=== PATIENT | male | born 2000 | race Hispanic/Latino ===

== ENCOUNTER 2025-04-02 00:07 | Emergency (ER) | payer SELFPAY ==
[2025-04-02 00:07] VITALS: BP 133/82; PULSE 68; RESP 18; TEMP 37.1; O2SAT 96
--- NOTE | 2025-04-02 00:20 | ECG_ITS ---
Test Date: 2025-04-02 00:23:07 Measurements Intervals [place] Rate: 58 P: 61 NH: 124 QRS: 71 QRSD: 114 T: 44 QT: 413 QTc: 407 Interpretive Statements SINUS BRADYCARDIA MODERATE INTRAVENTRICULAR CONDUCTION DELAY [110+ ms QRS DURATION] No previous ECG available for comparison Electronically Signed On 04-02-2025 16:04:30 CDT by Steven Escobar
[2025-04-02] MEDS: FAMOTIDINE 20 MG/2 ML VIAL IV PUSH (00:23)
[2025-04-02] MEDS: diphenhydrAMINE HCl INJ 50 MG/ML VIAL 25 MG IV PUSH ×2 (00:24→00:26)
[2025-04-02] MEDS: SODIUM CHLORIDE 0.9% IV 100 ML 999 ML (00:25)
[2025-04-02] MEDS: SODIUM CHLORIDE 0.9% IV 1,000 ML 999 ML IV CONT (00:26)
[2025-04-02 01:06] VITALS: BP 137/73; PULSE 61; RESP 14; O2SAT 100
[2025-04-02 01:07] VITALS: O2SAT 100
--- NOTE | 2025-04-02 03:16 | ED_ITS ---
HPI - General Adult General Chief complaint: Allergic Reaction Stated complaint: allergic reaction Time Seen by Provider: 04/02/25 00:21 History of Present Illness HPI narrative: Patient 24-year-old gentleman presents emergency department chief complaint of allergic reaction. The patient reports he has prior history of asthma reports that he ate a bowl that had shrimp in it of and had a reaction patient was given steroids by EMS reports that he started to feel better Related Data Allergies Allergy/AdvReac Type Severity Reaction Status Date / Time No Known Allergies Allergy Verified 04/02/25 00:26 Review of Systems Review of Systems: A 10 system review of systems was completed on the patient and is negative except for what is stated in the HPI. Nursing and ancillary documentation was reviewed. Exam Narrative: GENERAL: Well-appearing, well-nourished, and in no acute distress. HEAD: Normocephalic, atraumatic. EYES: PERRLA and EOMI. ENT: Nares clear, no rhinorrhea or epistaxis. Mucous membranes moist. NECK: Supple. CHEST: Clear to auscultation. No respiratory distress. HEART: Regular rate and rhythm. No murmur heard. Normal peripheral pulses. ABDOMEN: Soft, nontender, nondistended, normal active bowel sounds. EXTREMITIES: Normal range of motion. No edema. SKIN: Warm, dry, no rash. NEURO: No focal deficits. Alert and oriented x3. PSYCH: Normal mood and affect. Course Vital Signs Vital signs: Vital Signs Temperature 37.1 C 04/02/25 00:07 Pulse Rate 68 04/02/25 00:07 Respiratory Rate 18 04/02/25 00:07 Blood Pressure 133/82 04/02/25 00:07 Pulse Oximetry 96 04/02/25 00:07 Oxygen Delivery Room Air 04/02/25 00:07 Temperature 37.1 C 04/02/25 00:07 Pulse Rate 61 04/02/25 01:06 Respiratory Rate 14 04/02/25 01:06 Blood Pressure 137/73 04/02/25 01:06 Pulse Oximetry 100 04/02/25 01:07 Oxygen Delivery Room Air 04/02/25 01:07 Medical Decision Making [facility] Narrative Medical decision making narrative: Patient was treated with steroids pre-hospital received Benadryl and Pepcid in the ER and is feeling much better patient was observed for 2 hours will be discharged home Vital Signs Vital Signs: Vital Signs Temperature 37.1 C 04/02/25 00:07 Pulse Rate 68 04/02/25 00:07 Respiratory Rate 18 04/02/25 00:07 Blood Pressure 133/82 04/02/25 00:07 Pulse Oximetry 96 04/02/25 00:07 Oxygen Delivery Room Air 04/02/25 00:07 Temperature 37.1 C 04/02/25 00:07 Pulse Rate 61 04/02/25 01:06 Respiratory Rate 14 04/02/25 01:06 Blood Pressure 137/73 04/02/25 01:06 Pulse Oximetry 100 04/02/25 01:07 Oxygen Delivery Room Air 04/02/25 01:07 Discharge Plan Discharge Clinical Impression: Allergic reaction Patient Disposition: Home Condition: Stable Instructions: Antibiotic Form, General Allergic Reaction (ED) Patient Language: Occitan Prescriptions: New prednisone 20 mg tablet 40 mg PO DAILY 5 Days Qty: 10 0RF Follow-up/Referrals: Leif Collado MD [Physician] - UNKNOWN,DOCTOR [Primary Care Provider] - Time of Disposition: 03:19
== END 2025-04-02 03:30 | disposition home or self-care (01) ==
PROVIDERS: Emergency Provider Emergency Medicine
DX: T78.1XXA Other adverse food reactions, not elsewhere classified, initial encounter (principal); X58.XXXA Exposure to other specified factors, initial encounter
CPT/HCPCS: 93005; 96361; 96374; 96375; 99284; J0171; J1200; J7030